=== PATIENT | female | born 1970 | race Caucasian/White ===

== ENCOUNTER 2018-05-04 11:31 | Inpatient (IN) | payer BC, SELFPAY ==
--- NOTE | 2018-04-19 17:24 | PCM.HP.BLA ---
History and Physical Date of Admission: 04/19/18 Pre-Op History and Physical HPI: The patient is a 47 year old female presenting for pre-operative visit. She is scheduled for TLH, bilateral salpingectomy, abdominal morcelation, possible JIMBO, for heavy vaginal bleeding mass symptoms from enlarged fibroid uterus on 05/04/18. Procedure discussed along with risks, benefits and complications. Other alternatives discussed for management. Consent form signed? Yes. No past medical history on file. PAST SURGICAL HISTORY Procedure Laterality Date ? APPENDECTOMY 07/2016 ? SECTION HX 06/1988 and 06/1992 ? CORRECTION OF BUNION 1994 right foot ? PAST SURGICAL HISTORY OF 2001 tubal reversal ? TUBAL LIGATION following section 1992 Current Outpatient Prescriptions: medroxyPROGESTERone (PROVERA, CYCRIN) 10 mg tablet Take 10 mg by mouth. Disp: Rfl: MULTIVITAMIN ORAL Take by mouth. Disp: Rfl: VITAMIN B COMPLEX ORAL Take by mouth. Disp: Rfl: levonorgestrel (MIRENA) 20 mcg/24 hr (5 years) IUD 1 Each by INTRAUTERINE route one time only. Disp: Rfl: phentermine HCl (ADIPEX-P ORAL) Take by mouth. Disp: Rfl: No current facility-administered medications for this visit. ALLERGIES: Betadine [Povidone-Iodine] PERSONAL HISTORY: Social History Marital status: Spouse name: Suleiman Years of education: Number of children: 2 Social History Main Topics Smoking status: Never Smoker Smokeless tobacco: Never Used Alcohol use: Yes Comment: rare Drug use: No Sexual activity: Yes Partners with: Male FAMILY HISTORY: FAMILY HISTORY Problem Relation Age of Onset ? other (Hysterectomy) Mother ? Hypertension Father ? Diabetes Father ? other (Triple Bypass) Father ? other (missing half an ovary) Maternal Grandmother ? Alzheimer's Disease Paternal Grandmother REVIEW OF SYMPTOMS: GENERAL: denies fevers or chills ENDOCRINOLOGY: has not been on steroids Cardiology : denies palpitations or chest pain Respiratory: denies SOB or cough Hematology: denies history of prolonged bleeding or easy bruising or VTE Allergy: Denies history of personal or family history of allergy to anesthesia PHYSICAL EXAMINATION: VITALS: There were no vitals taken for this visit. GENERAL: The patient is well nourished, well hydrated in no acute distress. , The patient is oriented to time, place, and person. NECK: Supple. No lynphadenopathy, normal thyroid, no thyromegaly. LUNGS: Clear to auscultation bilaterally. no wheezes, rhonchi or rales HEART: Regular rate and rhythm, Normal heart sounds and No murmurs or gallops abd- enlarged uterus, filling lower abdomen, mobile, firm, consistent w/ fibroid uterus IMPRESSION: abnormal uterine bleeding, enlarged fibroid uterus PLAN: The risks/benefits/alternatives and personal involved for the planned total laparoscopic hysterectomy, bilateral salpingectomy, cystoscopy, morcellation through a small laparotomy incision, possible abdominal hysterectomy were reviewed with the patient. Her questions were answered to her satisfaction and she desires to proceed. Consent was signed. I reviewed with her postop instructions and expectations. I have reviewed and updated past medical and surgical history, medications and allergies Paz Caicedo M.D.
[2018-05-04] VITALS (14 sets, daily range): BP systolic 83–112; BP diastolic 48–75; PULSE 53–94; RESP 16–18; TEMP 36.2–37.8; O2SAT 94–100; BMI 42.1
[2018-05-04 06:39] LABS: Internal QC Validated? YES +Cl - CLEAR BKGD; Pregnancy, Urine Negative Negative
[2018-05-04] MEDS: Scopolamine 1mg/72hr Patch 1 PATCH TRANSDERM. (06:45)
[2018-05-04] MEDS: Phenazopyridine 95 MG Tablet 190 MG PO (06:46)
[2018-05-04] MEDS: Celecoxib 200 MG Capsule 400 MG PO (06:46)
[2018-05-04] MEDS: Enoxaparin 40 MG/0.4 ML Syringe SC (06:46)
[2018-05-04] MEDS: Acetaminophen 500 MG Tablet 1000 MG PO ×3 (06:46→18:39)
[2018-05-04] MEDS: Gabapentin 600 MG Tablet PO (06:50)
[2018-05-04] MEDS: Lactated Ringers 1,000 ML 40 ML IV (06:59)
[2018-05-04] MEDS: Magnesium Sulfate 4gm/100mL 4 GM/100 ML IV.SOLN. IV (07:00)
[2018-05-04 07:06] LABS: Bedside Glucose 56 mg/dL (70-110)
--- NOTE | 2018-05-04 07:30 | HYST_PTH ---
PATIENT: SINDY LIU LOC: MS3 U#:[id number] AGE/SX: 47/F ROOM: MS309 RE05/04/[address]: Dr. Paz Caicedo MD : 1970 BED: 1 DIS: 05/05/2018 SPEC #: [id number] RECD: 05/04/18 12:27 STATUS: AMANDA RERicardo #: [id number] KAYY: 05/04/18 07:[address]: Paz Caicedo DEPT: SURGICAL PATHOLOGY RECD BY: Kleber Edwards ENTERED: 05/04/18 13:48 SP TYPE: HYSTERECT OTHR DR: Out of Town Doctor Tissues: Uterus, NOS Procedures: Surgery Specimen Level V HEADER OPERATION: ERAS, hysterectomy, laparoscopic total, bilateral salpingectomy PRE-OP DIAGNOSIS: Abnormal uterine bleeding; enlarged fibroid uterus TISSUE SUBMITTED: Uterus, bilateral fallopian tubes MICROSCOPIC DIAGNOSIS Uterus, hysterectomy: Cervix - squamous metaplasia and mild chronic inflammation. Endometrium - weakly proliferative to inactive endometrium. Myometrium - extensive adenomyosis and leiomyomas. Right and left fallopian tubes - benign paratubal cysts. AM:luna 05/05/18 MICROSCOPIC DESCRIPTION Slides are reviewed. GROSS DESCRIPTION Received in fixative is one container labeled with the patient's name and designated uterus and bilateral fallopian tubes. The specimen consists of a hysterectomy specimen consisting of previously opened uterus with cervix and detached bilateral fallopian tubes. The uterus with cervix weighs 1289 gm and measures 17 x 17 x 13 cm. The serosal surface is barbosa, glistening. The ectocervical mucosa is unremarkable. It measures 9 cm in length. The endocervical canal measures 5 cm in length and the endocervical mucosa is barbosa, glistening and unremarkable. The triangular endometrial cavity measures 7 cm in length and up to 4 cm in width. The endometrium is almost completely obliterated and measures <0.1 cm in thickness. The uterine wall is diffusely thickened and measures up to 9 cm in thickness. Sections of the uterine wall reveal three small nodular masses measuring 0.5 to 1 cm in greatest dimension. Sections of the rest of the uterine wall reveal trabeculated cut surfaces suspicious for adenomyosis. The detached fallopian tubes are not identified as right or left and measures 4 cm in length and 0.5 cm in diameter and 3.5 cm in length and 0.5 cm in diameter. The fimbrial end is identified. Sections reveal unremarkable cut surfaces. Janitorial Tech sections are submitted in 11 cassettes as follows: 1 & 2 - cervix, 3-8 - uterine wall, 9 - nodular masses, 10 & 11 - bilateral fallopian tubes with each cassette containing one fallopian tube. / PEPE:luna 05/04/18 TC: 5 CPT: 18808
[2018-05-04] MEDS: Lidocaine/D5W 2,000 MG/250 ML IV.SOLN 2000 MG (08:00)
[2018-05-04] MEDS: Bupivacaine Mpf 0.5% 30 ML VIAL (08:05)
[2018-05-04] MEDS: Lubricating Jelly 60 GM Tube 30 GM TOPICAL (10:30)
--- NOTE | 2018-05-04 11:38 | OP.PCM_ITS ---
Report of Operation Date of Procedure: 05/04/18 Pre-Operative Diagnosis: menorrhagia, intramural uterine fibroids Post-Operative Diagnosis: same Surgery/Procedure Performed:: LAVH, bilateral salpingectomy, cystoscopy, laparatomy at [facility] incision to bivalve uterus and remove it Description of Surgical Findings:: very large boggy fibroid uterus, normal appearing ovaries and tubes, normal bladder, and vagina tanker driver: Cande Zavala Type of Anesthesia:: General Anesthesiologist: Vannessa Stockton Special Medications: none Specimen's removed: uterus, bilateral tubes Drains: mixon Estimated Blood Loss (mL): 250 Fluids Replaced: 2200 cc Description of Procedure: The patient was taken to the operating room where she was prepped and draped in the dorsal lithotomy position. Her arms were tucked to the side and padded and her legs were placed in the yellowfin stirrups. Care was taken to ensure that she was placed in a neurologically safe and neutral position. A weighted speculum was placed in the vagina and the anterior lip of the cervix was grasped with a single-tooth tenaculum. The cervix sounded to 12 centimeters. 2-0 Vicryl sutures were secured to the cervix at 3 and 9:00. The small V CARE bladimir cristofer into the cervix and the balloon inflated. The stay sutures were placed through the cup and secured down to the cervix. Once the V-Care was secured to the cervix the Mixon catheter was placed to straight drain. Attention was turned to the abdominal portion of the case. Before skin incisions were made they were infiltrated with 0.5% Marcaine solution for local anesthetic. A 5 mm left upper quadrant entry incision was made and while tenting the anterior abdominal wall up with towel clamps a 5 mm blade less trocar and sleeve were advanced directly into the peritoneal cavity. Peritoneal placement was confirmed with the laparoscope the pneumoperitoneum was created, and the underlying abdominal contents were intact. The patient was placed in Trendelenburg and the above findings were noted. Right upper quadrant and midline supraumbilical 5 mm incisions were made and 5 mm trochars were placed under direct visualization without difficulty. Eventually, it was determined we needed a fourth port and this was placed on the left lateral abdomen lateral to the umbilicus. The antimesenteric portion of the tube was clamped sealed and transected serially on both sides with the LigaSure device. The round ligaments were clamped sealed and transected. The utero-ovarian ligaments were then clamped sealed and transected with the LigaSure device and the pedicles were hemostatic. Great care had to be taken because there were very large dilated blood vessels along the lateral sides of the uterus. Also, the uterus was very large and cumbersome and we had to use a tenaculum to help manipulate it from side to side. With some care, the uterine arteries were skeletonized. The large vessels along the sides of the uterus were then clamped, sealed and sealed with the LigaSure device but not cut. There were some adhesions of the bladder. And due to the large size of the uterus it was technically difficult to get over the uterine fundus and operated in that area. This added complexity as well as time to the procedure. Again, we had to use multiple instruments to manipulate the uterus and to a position that so we could access the bladder flap. The bladder flap was dissected down with the LigaSure device and blunt dissection and the uterine arteries were then skeletonized. The uterine arteries were clamped, sealed and transected on both sides with the LigaSure device. Then along the cardinal ligament uterine arteries adjacent to the cervix were clamped sealed and transected with the LigaSure device to move them away from the vaginal cuff angle. Because of the large size of the vessels, they had to be cauterized several times. At the left vaginal cuff angle, there is some persistent slow bleeding that we are unable to cauterize. Some hemo-lock clips were placed in this area and then hemostasis was noted. At this point the pedicles were all examined and found to be hemostatic. The bladder flap was rechecked and found to be adequately down. The monopolar tip of the LigaSure device was then used to enter the anterior vagina. However, because of the large size of the uterus, it was difficult to access this vaginal angle because of having to move around the uterine fundus. Decision was then made to examine the posterior vaginal cuff and make a colpotomy incision there. However, due to the size and girth of the uterus, we are unable to hold it up adequately to have access to the posterior vaginal cuff. At this point, I felt that from what I had found on examination preoperatively, that I would be able to take uterosacral pedicles and the vaginal colpotomy incision through vaginal access. At this point the pedicles were hemostatic from above and attention was turned to the vaginal portion of the case again. The vaginal epithelium was in filtrated 1% Xylocaine with dilute epinephrine solution and incision was made around the vaginal epithelium around the cervix. I dissected back the vaginal epithelium with blunt sharp dissection in the anterior posterior colpotomy incisions were made sharply. Uterosacral ligaments were clamped, transected and suture-ligated. There was still a small amount of tissue along the left side of the uterus that was clamped, transected and suture-ligated and then the cervix and uterus were free from the vaginal cuff. The cervix was pushed up into the peritoneal cavity. There is some bleeding from the left vaginal cuff angle and this was grasped with an Allis clamp. Vaginal angle sutures were placed on both sides with 0 Vicryl sutures and care was taken to ensure that the uterosacral ligament was secured into this stitch. The remainder the vagina was then closed horizontally with interrupted 0 Vicryl sutures. The cuff was hemostatic vaginally. The Mixon catheter was removed and a cystoscopy was performed. The bladder appeared normal and was intact. Both ureteral orifices were noted and both ureteral jets were seen. The cystoscope was removed and the Mixon catheter was placed back to straight drain. A sponge stick was placed in the vagina to help place traction against the vaginal cuff. Along her Pfannenstiel incision, approximately 10 cm some local anesthetic was placed and an incision was made. It was carried through to underlying fascia with a scalpel. The fascia was incised in midline and fascial incision extended laterally with Gomez scissors. The fascia was dissected off the rest the rectus muscles and the rectus muscles were bluntly. Ileum was entered sharply and the peritoneal incision carried superiorly and inferiorly with good visualization of bladder. We then stretch the peritoneum and the muscles, and at that time skin incision stretched as well a proximally another 3-4 cm. Cervix was then brought up and out through the abdominal incision and incision was made to bivalve the uterus. With some care and difficulty were made an incision across the up to the fundus of the uterus and the anterior portion of the uterus and the posterior portion of the uterus. Then we brought out one half of the cervix and were able to with some fundal pressure manipulation manipulate the uterus out and a bivalve fashion. No morcellation was done. The bowel was then packed away with laparotomy sponges and pelvis was irrigated. There is a small amount of oozing along some peritoneal vessels on the left and these were oversewn with 2-0 Vicryl suture. There is some generalized ooziness but no active bleeding. The ovaries appeared normal and intact. Some Norman was placed over the pelvic structures and pressure was held for 2 minutes and t hen the sites were hemostatic. Anatomy sponges were removed. Some sponges were used to move any pulled blood from the colic gutters. The trochars were then removed. The rectus fascia was closed with #1 Vicryl in a running standard fashion. The skin was closed with Monocryl in a subcuticular fashion. The skin incisions from the trocar sites were closed with Monocryl suture. Skin glue was then placed over all of the sites. The vaginal instruments were removed by me and a vaginal sweep was completed by me. The surgery was performed by me with assistance. There were no qualified residents available for this procedure. All sponge lap and needle counts were correct and the patient was transferred to the recovery room in stable condition. Grafts/Implants Used: none - Complications none - Admit VTE Documentation VTE Present on Admission: No VTE Mechan Device Prophylaxis: SCD's VTE Pharm Prophylaxis ordered?: Yes
[2018-05-04 12:25] LABS: Bedside Glucose 144 mg/dL (70-110)
--- NOTE | 2018-05-04 15:16 | NURSING ---
Pharmacy called at this time- notified that pt received toradol 30mg IV at 1129 and that med is scheduled to be given now. Jessica, pharmacist states she will adjust administration time accordingly.
[2018-05-04] MEDS: Lactated Ringers 1,000 ML 70 ML IV (15:25)
[2018-05-04 15:35] LABS: Bedside Glucose 172 mg/dL (70-110)
[2018-05-04] MEDS: Ketorolac 30 MG/ML Syringe IV ×2 (17:01→23:05)
--- NOTE | 2018-05-04 18:48 | NURSING ---
Patient was up walking within 1st hour of being on MS3. Since that time she has been up walking the hallways with her family and tolerating well. Schuler cath was removed per her request-- ordered by Dr. Caicedo. Good PO intake. Pain 2/10 to abdomen but 5/10 to shoulders due to gas pain- educated on importance of ambulation and resolution of shoulder pain. Pt verbalized understanding. Pt chewing gum. Pt has 4 lap incisions and 1 transverse suprapubic incision closed with dermabond. Transverse incision has bruising around entire site.
[2018-05-04] MEDS: Docusate Sodium 100 MG Capsule PO (22:18)
[2018-05-05] MEDS: Acetaminophen 500 MG Tablet 1000 MG PO (00:18)
[2018-05-05] MEDS: oxyCODONE 5 MG Tablet PO ×2 (01:29→09:10)
[2018-05-05 05:00] VITALS: BP 96/57; PULSE 58; RESP 16; TEMP 36.8; O2SAT 96
[2018-05-05] MEDS: Lactated Ringers 1,000 ML 70 ML IV (05:26)
[2018-05-05] MEDS: Ketorolac 30 MG/ML Syringe IV (05:27)
[2018-05-05 06:12] LABS: Hematocrit 28.9 % (37-47); Hemoglobin 9.3 g/dl (12.0-15.0); Mean Corp Hgb Conc 32.2 g/gl (32-36); Mean Corpuscular Hgb 28.9 pg (27.0-32.0); Mean Corpuscular Volume 89.8 fL (81-99); Mean Platelet Vol. 9.6 fl (6.2-12.0); Platelet Count 267 K/mm3 (150-450); RBC Distribution Width CV 13.9 % (11.6-14.6); RBC Distribution Width SD 44.3 fl (35.1-43.9); Red Blood Count 3.22 M/mm3 (4.2-5.4); White Blood Count 8.6 K/mm3 (4.4-11.0)
[2018-05-05 06:17] LABS: Scan Indicated on CBC? Y/N NO
[2018-05-05 07:35] VITALS: O2SAT 97
--- NOTE | 2018-05-05 08:45 | PCM.PN.OB ---
Subjective: Pain well controlled, minimal vaginal bleeding. She denies any chest pain or shortness of breath. She would like to go home. She is tolerating regular diet and ambulating. She has been urinating without difficulty. - Physical Exam General: Alert, Cooperative, No apparent distress Abdomen: Soft, Distended - Mildly, softly, Tender - Appropriate Skin: Incision - Upper incisions are clean dry and intact, lower incision is clean dry and intact but with large amount of ecchymoses that is soft. Vital Signs Temp Pulse Resp BP Pulse Ox 98.2 F 58 L 16 96/57 L 97 05/05/18 05:00 05/05/18 05:00 05/05/18 05:00 05/05/18 05:00 05/05/18 07:35 Oxygen Flow Rate (L/min) 2 Oxygen Delivery Method Room Air Weight: 107.9 kg Body Mass Index (BMI) 42.1 Finger Stick Blood Glucose 144 Intake and Output for Last 24 Hours 05/03/18 05/04/18 05/05/18 23:59 23:59 23:59 Intake Total 5166 / 5166 1090 / 1090 Output Total 1050 / 1050 1000 / 1000 Balance 4116 / 4116 90 / 90 Laboratory Tests Past 24 Hrs 05/05/18 05:48 WBC 8.6 RBC 3.22 L Hgb 9.3 L Hct 28.9 L MCV 89.8 MCH 28.9 MCHC 32.2 RDW 13.9 RDW Differential 44.3 H Plt Count 267 MPV 9.6 POC Glucose 05/04/18 05/04/18 12:23 11:16 POC Glucose 144 H 172 H Medical Necessity - Tobacco Use Smoking Status: Never smoker Assessment/Plan Postoperative day #1 status post LAVH, bilateral salpingectomy, mini laparotomy doing remove large fibroid uterus. Patient is doing well. Hemoglobin is appropriate for blood loss during surgery and somewhat hemodiluted with her input being significantly higher than her output. Routine discharge instructions and prescriptions reviewed with patient. Operative course and findings reviewed. Pathology is pending. Patient would like to be discharged today. Wound care reviewed.
--- NOTE | 2018-05-05 08:49 | PCM.DC.AHY ---
Discharge Diet: No Restrictions Discharge Activity: Return to Normal Activity, May Not Drive - while taking narcotic pain medications., May Shower May resume sexual activity in: 6-8 weeks Call your doctor if your incision/area has: Continuous Slow Oozing, Sudden Increased Bleeding, Increased Pain/ Swelling, Increased Redness, Foul Smelling Discharge Call your doctor if you observe: Fever of 101 or Higher, Inability to urinate, Inability to have a bowel movement, Using more than one pad per hour Cleanse incision/area with: Soap & Water Allergies/Adverse Reactions: Allergies povidone-iodine [From Betadine] Allergy (Verified 05/02/18 12:59) Rash soap [From Betadine] Allergy (Verified 05/02/18 12:59) Rash Medications to take at Discharge Cetirizine HCl [Zyrtec] 10 mg PO DAILY 05/02/18 Multivitamin [Daily Multiple Vitamin] 1 each PO DAILY 05/02/18 Vitamin B Complex 1 each PO DAILY 05/02/18 Ibuprofen [Motrin] 600 mg PO Q6H PRN #60 tablet 05/05/18 Oxycodone HCl/Acetaminophen [Percocet 5-325] 1 - 2 tablet PO Q8 PRN 7 Days #28 tablet 05/05/18 The following prescriptions were given: Oxycodone HCl/Acetaminophen [Percocet 5-325] 1 - 2 tablet PO Q8 PRN 7 Days #28 tablet PRN Reason: Moderate-Severe pain Ibuprofen [Motrin] 600 mg PO Q6H PRN #60 tablet PRN Reason: Pain Primary Care Physician: [facility] Doctor,Out of [Primary Care Provider] - Test Results: Test results from this visit will be discussed in further detail at your follow-up appointment, if applicable. Please Follow Up With: Paz Caicedo MD - [phone] When: 1-2 and 6 weeks or as needed
[2018-05-05 09:05] VITALS: BP 92/55; PULSE 54; RESP 18; TEMP 36.9; O2SAT 100
[2018-05-05] MEDS: Loratadine 10 MG Tablet PO (09:12)
[2018-05-05] MEDS: Docusate Sodium 100 MG Capsule PO (09:12)
[2018-05-05 10:00] VITALS: BP 92/55; PULSE 54; RESP 18; TEMP 36.9; O2SAT 100
== END 2018-05-05 10:01 | disposition home or self-care (01) | DRG 743 ==
LOC: SDC 14:54
PROVIDERS: Admitting Provider Obstetrics & Gynecology; Referring Provider Obstetrics & Gynecology; Visit Provider Obstetrics & Gynecology
PROC: 0UT94ZZ Resection of Uterus, Percutaneous Endoscopic Approach (ICD-10-PCS; principal; 2018-05-04 07:10)
DX: D25.9 Leiomyoma of uterus, unspecified (principal); N92.0 Excessive and frequent menstruation with regular cycle
CPT/HCPCS: 36415; 81025; 82962; 85027; 86850; 86900; 88307; J7120; J2405